=== PATIENT | male | born 1990 | race Caucasian/White ===

== ENCOUNTER → 2023-02-01 | Outpatient (CLI) | payer OTHER, SELFPAY ==
[2023-02-01 09:23] LABS: Absolute Lymphocyte Count 1.57 X10^3/uL (0.83-4.51); Absolute Neutrophil Count 5.6 X10^3/uL (2.0-7.7); Basophil# 0.05 X10^3/uL; Basophil% 0.6 % (0-1); Eosinophil# 0.15 X10^3/uL; Eosinophils% 1.9 % (0-5); Hematocrit 47.3 % (40-54); Hemoglobin 15.3 g/dL (13.0-16.5); Lymphocyte # 1.57 X10^3/ul (0.83-4.51); Lymphocyte % 19.6 % (19-41); Mean Corp Hgb Conc 32.3 g/dL (32-36); Mean Corpuscular Hgb 28.4 pg (27.0-32.0); Mean Corpuscular Volume 87.9 fL (80-94); Mean Platelet Vol. 9.4 fl (6.2-12.0); Monocyte# 0.57 X10^3/uL; Monocyte% 7.1 % (0-10); NRBC Flagged by Analyzer 0 % (0-5); Neutrophil # 5.64 X10^3/uL (2.7-7.7); Neutrophil % 70.5 % (47-70); Platelet Count 290 K/mm3 (150-450); RBC Distribution Width CV 13.6 % (11.6-14.6); RBC Distribution Width SD 43.5 fl (35.1-43.9); Red Blood Count 5.38 M/mm3 (4.6-6.2)
[2023-02-01 09:30] LABS: Erythrocyte Sedimentation Rate 13 mm/hr (0-20)
[2023-02-01 10:03] LABS: Vitamin B12 342 pg/mL (211-911)
[2023-02-01 10:15] LABS: ALB/GLOB Ratio 0.9 RATIO (0.9-2.4); AST(SGOT) 26 U/L (15-37); Alanine Aminotransfer ALT/SGPT 42 U/L (16-61); Albumin, Serum 3.5 g/dL (3.2-5.0); Alkaline Phosphatase 91 U/L (45-117); Anion Gap 3 (5-15); BUN 12 mg/dL (7-18); BUN/Creat Ratio 15.9 RATIO (10-20); CRP 7.03 mg/L (0.0-3.0); Calcium,Total 8.5 mg/dL (8.5-10.1); Chloride 106 mmol/L (98-107); Creatinine, Serum 0.75 mg/dL (0.70-1.30); EST Glomerular Filtration Rate 129 mL/min (>60); Est Glom Filt Rate - Afr Amer 156 mL/min (>60); Globulin 3.8 g/dL (2.2-4.2); Glucose 93 mg/dL (74-106); LDH 180 U/L (87-241); Potassium 4.4 mmol/L (3.5-5.1); Protein, Total 7.3 g/dL (6.4-8.2); Sodium Level 136 mmol/L (136-145)
[2023-02-02 16:09] LABS: Endomysial Antibody IgA Negative (Negative); Immunoglobulin A 321 mg/dL (90-386); t-Transglutaminase IgA <2 U/mL (0-3)
[2023-02-05 14:09] LABS: Albumin 3.7 g/dL (2.9-4.4); Alpha-1-Globulins 0.3 g/dL (0.0-0.4); Alpha-2-Globulins 0.7 g/dL (0.4-1.0); Cytoplasmic Ab (C-ANCA) <1:20 titer (Neg:<1:20); Gamma Globulin 1.4 g/dL (0.4-1.8); H. PYLORI STOOL AG Negative (Negative); Immunoglobulin A 321 mg/dL (90-386); Immunoglobulin E 1579 IU/mL (6-495); Immunoglobulin G 1277 mg/dL (603-1613); Immunoglobulin M 76 mg/dL (20-172); PROEL- TOTAL PROTEIN 7.1 g/dL (6.0-8.5); Pancreatic Elastase, Fecal 273 (>200); Perinuclear Ab (P-ANCA) <1:20 titer (Neg:<1:20); Testosterone Free 9.5 pg/mL (8.7-25.1)
[2023-02-10 22:06] LABS: Anti-Centromere B Ab <0.2 AI (0.0-0.9); Anti-Chromatin <0.2 AI (0.0-0.9); Anti-Jo <0.2 AI (0.0-0.9); Anti-Scleroderma-70 AB <0.2 AI (0.0-0.9); Anti-dsDNA Ab <1 IU/mL (0-9); Calprotectin, Stool <5 ug/g (0-120); RNP Ab <0.2 AI (0.0-0.9); SJOGREN'S Anti-SS-A test < 0.2 AI (0.0-0.9); SJOGREN'S Anti-SS-B test < 0.2 AI (0.0-0.9); Smith Ab <0.2 AI (0.0-0.9)
== END | disposition home or self-care (01) ==
LOC: LAB 08:55
PROVIDERS: PCP Family Medicine; Referring Provider Internal Medicine Gastroenterology; Visit Provider Internal Medicine Gastroenterology
DX: K58.9 Irritable bowel syndrome, unspecified (principal); R19.5 Other fecal abnormalities; R07.89 Other chest pain
CPT/HCPCS: 36415; 80053; 82607; 82653; 82746; 82784; 82785; 83516; 83615; 83630; 83993; 84165; 84402; 85025; 85652; 86140; 86225; 86235; 86255; 86256; 86334; 87177; 87209; 87329; 87338; 87493; 87506

== ENCOUNTER → 2023-06-15 | Outpatient (CLI) | payer OTHER, SELFPAY ==
[2023-06-15 09:49] LABS: Erythrocyte Sedimentation Rate 13 mm/hr (0-20)
[2023-06-15 09:50] LABS: Absolute Lymphocyte Count 1.49 X10^3/uL (0.83-4.51); Absolute Neutrophil Count 4.2 X10^3/uL (2.0-7.7); Basophil# 0.03 X10^3/uL; Basophil% 0.4 % (0-1); Eosinophil# 0.72 X10^3/uL; Eosinophils% 10.2 % (0-5); Lymphocyte # 1.49 X10^3/ul (0.83-4.51); Mean Corp Hgb Conc 31.9 g/dL (32-36); Mean Corpuscular Hgb 28.6 pg (27.0-32.0); Mean Corpuscular Volume 89.7 fL (80-94); Mean Platelet Vol. 9.8 fl (6.2-12.0); Monocyte% 8.5 % (0-10); NRBC Flagged by Analyzer 0 % (0-5); Neutrophil # 4.23 X10^3/uL (2.7-7.7); Neutrophil % 59.6 % (47-70); Platelet Count 247 K/mm3 (150-450); RBC Distribution Width CV 13.9 % (11.6-14.6); RBC Distribution Width SD 45.3 fl (35.1-43.9); Red Blood Count 5.24 M/mm3 (4.6-6.2); White Blood Count 7.1 K/mm3 (4.4-11.0)
[2023-06-15 10:44] LABS: ALB/GLOB Ratio 0.8 RATIO (0.9-2.4); AST(SGOT) 30 U/L (15-37); Alanine Aminotransfer ALT/SGPT 34 U/L (16-61); Albumin, Serum 3.4 g/dL (3.2-5.0); Alkaline Phosphatase 97 U/L (45-117); Anion Gap 5 (5-15); BUN 14 mg/dL (7-18); BUN/Creat Ratio 17.5 RATIO (10-20); CRP 9.42 mg/L (0.0-3.0); Calcium,Total 8.4 mg/dL (8.5-10.1); Chloride 106 mmol/L (98-107); EST Glomerular Filtration Rate 120 mL/min (>60); Est Glom Filt Rate - Afr Amer 146 mL/min (>60); Glucose 100 mg/dL (74-106); Potassium 4.6 mmol/L (3.5-5.1); Protein, Total 7.4 g/dL (6.4-8.2); Sodium Level 136 mmol/L (136-145); Thyroid Stim Hormone (TSH) 1.05 uIU/mL (0.358-3.74)
[2023-06-18 10:09] LABS: Immunoglobulin A 306 mg/dL (90-386); Immunoglobulin E 1093 IU/mL (6-495); Immunoglobulin G 1173 mg/dL (603-1613); Immunoglobulin M 86 mg/dL (20-172)
== END | disposition home or self-care (01) ==
LOC: LAB 09:23
PROVIDERS: PCP Family Medicine; Visit Provider Internal Medicine Gastroenterology
DX: R76.8 Other specified abnormal immunological findings in serum (principal); R10.9 Unspecified abdominal pain
CPT/HCPCS: 36415; 80053; 82784; 82785; 84443; 85025; 85652; 86140

== ENCOUNTER → 2023-07-06 | Outpatient (CLI) | payer OTHER, SELFPAY ==
--- NOTE | 2023-07-06 12:14 | CT_ITS ---
STUDY: CT ABDOMEN AND PELVIS WITH CONTRAST REASON FOR EXAM: Male, 32 years old. Intermittent abdominal pain and diarrhea. RADIATION DOSAGE (If Supplied By Facility): CTDIvol = ( 15.41 ) mGy, DLP = ( 1341.35 ) mGycm TECHNIQUE: Transaxial images were obtained from the dome of the diaphragm to the symphysis pubis without oral contrast. IV 100mL Isovue-300 was administered. Sagittal and coronal images were reconstructed. Individualized dose optimization techniques were used for this CT. COMPARISON: None. FINDINGS: The visualized lung bases are unremarkable. The visualized portions of the heart are within normal limits. Normal liver. Normal gallbladder and extrahepatic biliary system. Normal spleen. Normal pancreas. Normal bilateral adrenal glands. Normal right kidney. Normal left kidney. Normal visualized stomach. Normal small intestine. Normal colon. The appendix is visualized and appears normal. Normal abdominal aorta. Normal inferior vena cava. Normal retroperitoneum. Normal urinary bladder. Normal abdominal wall. Normal osseous structures. CT/Abdomen/Pelvis WITH Contrast IMPRESSION: Normal enhanced CT of the abdomen and pelvis. Electronically Signed: Mir Rodriguez MD at 13:11 [facility] ,
== END | disposition home or self-care (01) ==
PROVIDERS: PCP Family Medicine; Referring Provider Internal Medicine Gastroenterology; Visit Provider Internal Medicine Gastroenterology
DX: R76.8 Other specified abnormal immunological findings in serum (principal); R10.9 Unspecified abdominal pain
CPT/HCPCS: 74177; Q9967

== ENCOUNTER 2023-07-07 10:34 | Day surgery (SDC) | payer OTHER, SELFPAY ==
--- NOTE | 2023-07-07 | IMM_PTH ---
PATIENT: YEE SHANKAR LOC: [facility] U#:[id number] AGE/SX: 32/M ROOM: RE07/07/[address]: Dr. Koko Jung DO : 1990 BED: DIS: 07/07/2023 SPEC #: [id number] RECD: 07/09/23 14:59 STATUS: CINDY REQ #: [id number] PASHA: 07/07/23 00:[address]: Koko Jung DEPT: IMMUNOHISTOCHEMISTRY RECD BY: Janee Felipe ENTERED: 07/09/23 15:00 SP TYPE: IMMUNO OTHR DR: Dr. Bandar Dickerson MD Tissues: B - Pyloric sphincter Procedures: H Pylori (initial) PHYSICIAN & INSTITUTION [place] [id number] SPECIMEN INFORMATION: Tissue Source: B - Pyloric sphincter Clinical Info: Abdominal pain, elevated IgE Specimen Number: [id number] CPT code: 17826 METHODOLOGY: Deparaffinized sections of prefer/formalin-fixed tissue or PAP/DQ stained slides are incubated with monoclonal/polyclonal antibodies/oligonucleotide probes. Localization is made via biotin free immunoperoxidase method. Appropriate controls are performed and reacted as expected. Results on target cell population are indicated in the following table: RESULTS: ANTIBODY / CLONE RESULT Block B H Pylori (polyclonal) negative These tests were developed and their performance characteristics determined by [facility]. They may not have been cleared or approved by the U.S. Food and Drug Administration. The FDA has determined that such clearance or approval is not necessary. The above immunohistochemical/dualISH markers are ordered and reviewed by the Pathologist. INTERPRETATION: B. Pyloric sphincter, biopsy: Negative for Helicobacter pylori organisms. AM:isaura 07/12/2023
[2023-07-07 10:52] VITALS: BP 137/84; PULSE 72; RESP 16; TEMP 36.6; O2SAT 97; BMI 43.0
--- NOTE | 2023-07-07 10:54 | PCM.HP.BLA ---
History and Physical Date of Admission: 07/07/23 YEE SHANKAR, is a 32 M who presents to the office today for follow up. PCP OV 11.30.22 with sudden onset RUQ/generalized abdominal pain with bloating for one month with worsening during that time and aggravated by meals.?US RUQ 12.02.22 JPH?without acute/chronic finding.?HIDA 12.11.22?EF 66%? *BGI established 01.29.23 for the last eight months he has had upper abdominal/chest pressure and discomfort with chest burning. BM typically twice a day with varying consistency between normal and liquid and hard stools (most infrequent). Food triggers of loose stools include grease, acidic foods, tomato sauces. Recently he has been eating a lot of toast because of his symptoms. Drinks predominately water and Gatorade light sugar. Pantoprazole 40mg prescribed for approximately a month which was initially helpful with burning reduction but eventually symptoms returned. ?Biochemical?CBC (eos WNL), ESR, CMP, LFT, LDH, Vit B12, folate, LAURA comp, ANCA, IgGAM, ALICIA, celiac, testosterone without pertinent abnormality.? CRP H7.03, IgE H1579? Stool calprotectin, elastase, fat, h.pylori, C.difficile, lactoferrin, EP, O/P, giardia WNL? Contact 02.11.23 with results. 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 [facility] hematology who has ruled out possible malignancy; elevated IgE can be infectious disease, atopic disease, inflammatory disease, immunodeficiency. Follow up with PCP.? OV 06.15.23 Pt states he changed his diet since last visit by cutting out red sauces, greasy foods and anything spicy. He was feeling better with this but then started reverting back to old diet. Sx returned a week or so ago. Consistent LLQ pain, loose stools, increased gas. Did take Budesonide we prescribed which he says made a little difference. ROS Const Constitutional: Positive for fatigue ENT ENT: No difficulty swallowing Cardio Cardiology: Positive for leg pain with exertion Gastro GI: Positive for abdominal pain, bloating, change in bowel habits, diarrhea, excessive flatus and nausea/dyspepsia; No belching, change in stool character, coffee ground emesis, constipation, cramping, heartburn, difficulty swallowing, feeling full early, incontinent of stools, Vomiting blood/hematemesis, Blood in stool, loose stools, Black,tarry stools, pain with swallowing, vomiting or other Musc Musculoskeletal: Positive for joint pain, back pain, muscle cramps, muscle weakness, numbness, stiffness, tingling and leg pain with exertion Skin Skin: No yellowing of the eye or itchy eyes Neuro Neurology: Positive for numbness and tingling Psych Psychiatric: No anxiety and No depression Endo Endocrine: Positive for fatigue Aller/Imm Allergy/Immunologic: No itchy eyes Richard/Lymp Hematologic/Lymphatic: No easy bleeding or easy bruising Exam Const General: cooperative and comfortable Nutritional Appearance: average body habitus and well nourished HENMT Head: normal to inspection Ears: hearing grossly normal bilaterally Nose: external nose normal Face and sinus: normal facial exam Mouth: oral mucosae normal Throat: posterior oropharynx normal Eyes General: appearance normal, both eyes and all related structures Neck Neck: normal visual inspection Chest Chest palpation & inspection: normal inspection of the chest and normal palpation of entire chest wall Resp Effort & Inspection: normal respiratory effort Auscultation: Bilateral: Clear to Auscultation Cardio Palpation: normal PMI Rate: regular rate Rhythm: regular rhythm GI Inspection: normal to inspection Auscultation: normal bowel sounds Percussion: normal to percussion Palpation: no hepatosplenomegaly Skin General: no rashes or lesions noted Neuro General: patient alert Extrem General: normal to inspection Psych Affect: normal affect Quality Reporting Tobacco Screening ([facility]) Smoking Status: Never smoker Assessment and Plan Assessment and Plan (1) Elevated IgE level: Status: Acute (2) Abdominal pain: Status: Acute Qualifiers: Abdominal location: epigastric Qualified Code(s): R10.13 - Epigastric pain Plan: 32-year-old gentleman with no past medical history comes in with a chief complaint abdominal pain sometimes in the left upper quadrant sometimes in right upper quadrant. The pain can also radiate to his back. His previous work-up includes an ultrasound of the right lower quadrant along with HIDA scan and abdominal x-rays. He was told his gallbladder was properly. However he complains of abdominal pain and postprandial burning. His initial work-up included stool test for enteric pathogens and ova and parasites. That turned out to be negative. He also was empirically treated with pantoprazole. His chest pain and chest pressure got better as well as his abdominal pain in the beginning 2 weeks of taking first dose of medicine. However those symptoms went away and he currently has a pounding throbbing pain in the left upper quadrant. He has no tenesmus. He does have bleeding on exam. He does not like to take medicines. He has not had any weight loss, fever, night sweats or any other alarming B symptoms. The differential diagnosis for his abdominal pain does include H. pylori associated gastritis, peptic ulcer disease, bile induced gastritis or duodenitis, delayed gastric emptying. After talking with the patient and the patient's mother he does admit to taking multiple NSAIDs on a daily basis. I will give pantoprazole twice a day and Carafate twice a day for 8 weeks and to wean off both of those medicines over 8 weeks. We will also schedule him for an upper endoscopy and a CT scan of the abdomen pelvis due to weight loss and intractable abdominal pain. (3) Loose stools: Status: Chronic (4) Burning chest pain: Status: Chronic Orders: Orders CBC W/Diff, Automated Today R10.9 - Unspecified abdominal pain, R76.8 - Other specified abnormal immunological findings in serum Immunoglobulin A Today R10.9 - Unspecified abdominal pain, R76.8 - Other specified abnormal immunological findings in serum Immunoglobulin E Today R10.9 - Unspecified abdominal pain, R76.8 - Other specified abnormal immunological findings in serum Immunoglobulin G Today R10.9 - Unspecified abdominal pain, R76.8 - Other specified abnormal immunological findings in serum Immunoglobulin M Today R10.9 - Unspecified abdominal pain, R76.8 - Other specified abnormal immunological findings in serum CRP Today R10.9 - Unspecified abdominal pain, R76.8 - Other specified abnormal immunological findings in serum Erythrocyte Sed Rate Today R10.9 - Unspecified abdominal pain, R76.8 - Other specified abnormal immunological findings in serum Comprehensive Metabolic Profil Today R10.9 - Unspecified abdominal pain, R76.8 - Other specified abnormal immunological findings in serum Thyroid Stim Hormone (TSH) Today R10.9 - Unspecified abdominal pain, R76.8 - Other specified abnormal immunological findings in serum Abdomen/Pelvis WITH Contrast Today R10.9 - Unspecified abdominal pain, R76.8 - Other specified abnormal immunological findings in serum Medications: New sucralfate (Carafate) 1 g PO BID 60 tabs 1RF pantoprazole 40 mg PO BID 60 tabs 2RF I have examined the patient and the H&P has been reviewed. There are no clinical changes since date of exam.
[2023-07-07] MEDS: Lactated Ringers 1,000 ML 15 ML IV (10:55)
--- NOTE | 2023-07-07 11:45 | EGD_PTH ---
PATIENT: YEE SHANKAR LOC: [facility] U#:[id number] AGE/SX: 32/M ROOM: RE07/07/[address]: Dr. Kook Jung DO : 1990 BED: DIS: 07/07/2023 SPEC #: [id number] RECD: 07/08/23 07:45 STATUS: CINDY MCKENNA #: [id number] PASHA: 07/07/23 11:[address]: Koko Jung DEPT: SURGICAL PATHOLOGY RECD BY: Willow Magdaleno ENTERED: 07/08/23 07:46 SP TYPE: EGD BIOPSY [facility] DR: Dr. Bandar Dickerson MD Tissues: A - Duodenum, NOS B - Pyloric sphincter Procedures: Surgery Specimen Level IV HEADER OPERATION: EGD with biopsy PRE-OP DIAGNOSIS: Abdominal pain, elevated IgE TISSUE SUBMITTED: A - Duodenal polyp, B - Pyloric sphincter MICROSCOPIC DIAGNOSIS A. 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 B. Pyloric sphincter, biopsy: Chronic gastritis. See comment. AM:isaura 07/09/2023 COMMENT B. The results of immunohistochemistry for Helicobacter pylori will be reported separately ([id number]). MICROSCOPIC DESCRIPTION Slides are reviewed. GROSS DESCRIPTION A - Received in fixative is one container labeled with the patient's name and designated duodenal polyp. The specimen consists of multiple irregular fragments of light burgos soft tissue that in aggregate measure 1.0 x 0.5 x 0.1 cm. The specimen is totally submitted in one cassette. B - Received in fixative is one container labeled with the patient's name and designated pyloric sphincter. The specimen consists of two irregular fragments of light burgos soft tissue that in aggregate measure 0.7 x 0.7 x 0.1 cm. The specimen is totally submitted in one cassette. / AM:isaura 07/08/2023 TC:3 CPT: 92197 x2
[2023-07-07 11:51] VITALS: BP 135/77; BP 137/84; PULSE 81; RESP 20; TEMP 37.6; O2SAT 89
[2023-07-07 11:55] VITALS: BP 117/98; BP 137/84; PULSE 78; RESP 20; O2SAT 96
--- NOTE | 2023-07-07 11:57 | OP.EGD_ITS ---
Patient Name: Terry Chen Procedure Date: 07/07/2023 11:29 AM Date of : 1990 Age: 32 Procedure: Upper GI endoscopy Indications: Epigastric abdominal pain, Abdominal pain in the right upper quadrant, Functional Dyspepsia Providers: Koko Jung DO Referring MD: Koko Jung DO Medicines: Monitored Anesthesia Care Patient Profile: This is a 32 year old male. Refer to note in patient chart for documentation of history and physical. Patient has symptoms of chronic right upper quadrant abdominal pain and chronic epigastric abdominal pain. Complications: No immediate complications. Procedure: Pre-Anesthesia Assessment: - Prior to the procedure, a History and Physical was performed, and patient medications and allergies were reviewed. The patient is competent. The risks and benefits of the procedure and the sedation options and risks were discussed with the patient. All questions were answered and informed consent was obtained. Patient identification and proposed procedure were verified by the physician. Mental Status Examination: normal. Prophylactic Antibiotics: The patient does not require prophylactic antibiotics. Prior Anticoagulants: The patient has taken no anticoagulant or antiplatelet agents. ASA Grade Assessment: II - A patient with mild systemic disease. After reviewing the risks and benefits, the patient was deemed in satisfactory condition to undergo the procedure. The anesthesia plan was to use monitored anesthesia care (MAC). Immediately prior to administration of medications, the patient was re-assessed for adequacy to receive sedatives. The heart rate, respiratory rate, oxygen saturations, blood pressure, adequacy of pulmonary ventilation, and response to care were monitored throughout the procedure. The physical status of the patient was re-assessed after the procedure. After obtaining informed consent, the endoscope was passed under direct vision. Throughout the procedure, the patient's blood pressure, pulse, and oxygen saturations were monitored continuously. The gastroscope was introduced through the mouth, and advanced to the second part of duodenum. The upper GI endoscopy was accomplished without difficulty. The patient tolerated the procedure well. Scope In: 11:38:53 AM Scope Out: 11:43:49 AM Total Procedure Duration Time 0 hours 4 minutes 56 seconds Findings: The examined esophagus was normal. No gross lesions were noted in the entire examined stomach. A benign-appearing, intrinsic moderate stenosis was found at the pylorus. This was traversed. Biopsies were taken with a cold forceps for histology. Verification of patient identification for the specimen was done. Estimated blood loss was minimal. A TTS dilator was passed through the scope. Dilation with a 15 mm pyloric balloon dilator was performed. The dilation site was examined and showed moderate mucosal disruption. A single 5 mm mucosal nodule with a localized distribution was found in the minor papilla. The nodule was Bobbi classification Ip (protruding, pedunculated). Biopsies were taken with a cold forceps for histology. Verification of patient identification for the specimen was done. Estimated blood loss was minimal. Impression: - Normal esophagus. - No gross lesions in the entire stomach. - Gastric stenosis was found at the pylorus. Biopsied. Dilated. - Mucosal nodule found in the duodenum. Biopsied. Recommendation: - Discharge patient to home. - Resume previous diet. - Continue present medications. - Await pathology results. - MRCP to look for pancreatic divisum and possible Santorinicel Procedure Code(s): --- Professional --- 41210, Esophagogastroduodenoscopy, flexible, transoral; with dilation of gastric/duodenal stricture(s) (eg, balloon, bougie) 60658, 59, Esophagogastroduodenoscopy, flexible, transoral; with biopsy, single or multiple CPT copyright 2021 [employer]. All rights reserved. The codes documented in this report are preliminary and upon client technical specialist review may be revised to meet current compliance requirements. Koko Jung DO 07/07/2023 11:56:52 AM This report has been signed electronically. Number of Addenda: 0 Note Initiated On: 07/07/2023 11:29 AM
--- NOTE | 2023-07-07 11:57 | OP.CCLET_ITS ---
07/07/2023 Bandar Dickerson Re : Upper GI endoscopy procedure for Terry Dickerson This procedure was performed on Friday, July 07, 2023. My impressions and recommendations are as follows: Impressions : - Normal esophagus. - No gross lesions in the entire stomach. - Gastric stenosis was found at the pylorus. Biopsied. Dilated. - Mucosal nodule found in the duodenum. Biopsied. Recommendations : - Discharge patient to home. - Resume previous diet. - Continue present medications. - Await pathology results. - MRCP to look for pancreatic divisum and possible Santorinicel My findings are described in the full procedure note, which is enclosed. If I can be of further assistance, please feel free to contact me at . Sincerely, Koko Jung, 07/07/2023 11:56:52 AM This report has been signed electronically.
[2023-07-07 12:01] VITALS: BP 115/67; BP 137/84; PULSE 78; RESP 18; O2SAT 93
[2023-07-07 12:05] VITALS: BP 116/65; BP 137/84; PULSE 81; RESP 18; TEMP 36.4; O2SAT 93
[2023-07-07 12:14] VITALS: BP 137/84
== END 2023-07-07 12:44 | disposition home or self-care (01) ==
LOC: EN 10:35 → AC 10:36
PROVIDERS: PCP Family Medicine; Referring Provider Family Medicine; Visit Provider Internal Medicine Gastroenterology
PROC: 0DJ08ZZ Inspection of Upper Intestinal Tract, Via Natural or Artificial Opening Endoscopic (ICD-10-PCS; CPT 43235; principal; 2023-07-07 11:40)
DX: K31.1 Adult hypertrophic pyloric stenosis (principal); K29.50 Unspecified chronic gastritis without bleeding; K31.7 Polyp of stomach and duodenum
CPT/HCPCS: 43245; 43239; 88305; 88342; J7120; J2405

== ENCOUNTER → 2023-07-19 | Outpatient (CLI) | payer OTHER, SELFPAY ==
--- NOTE | 2023-07-19 17:50 | MRI_ITS ---
EXAM: MR ABDOMEN WITHOUT INTRAVENOUS CONTRAST, MRCP PROTOCOL CLINICAL INDICATION: PANCREATIC DIVISUM TECHNIQUE: Multiplanar and multisequence MR images of the abdomen without intravenous contrast obtained with MRCP sequence. Three-dimensional post-processing reconstructions were performed. COMPARISON: No relevant prior studies available. FINDINGS: LOWER THORAX: Normal. No pleural effusion. LIVER: Normal. Normal morphology. GALLBLADDER AND BILE DUCTS: Normal. No gallstones. No gallbladder distention or wall edema. No intra- or extrahepatic biliary ductal dilation. No choledochal filling defect. PANCREAS: Pancreatic duct not well seen but there are no findings to suggest pancreas divisum. No focal cystic mass. SPLEEN: Normal. Non-enlarged. ADRENALS: Normal. No nodules. KIDNEYS AND URETERS: Normal. Normal renal size and position. No hydronephrosis. INTRAPERITONEAL SPACE: Normal. No ascites or other fluid collection. VASCULATURE: Normal. Abdominal aorta is non-dilated. LYMPH NODES: No enlarged lymph nodes. MRI/MRCP Abdomen without Contrast IMPRESSION: No acute findings in the visualized abdomen. No evidence of pancreas divisum. Electronically Signed: Nato Tirado MD at 8:13 EST ,
== END | disposition home or self-care (01) ==
LOC: MRI 17:44
PROVIDERS: PCP Family Medicine; Referring Provider Internal Medicine Gastroenterology; Visit Provider Internal Medicine Gastroenterology
DX: Q45.3 Other congenital malformations of pancreas and pancreatic duct (principal)
CPT/HCPCS: 74181